=== PATIENT | female | born 1990 | race Caucasian/White ===

== ENCOUNTER 2022-06-27 16:48 | Outpatient (CLI) | payer OTHER | END 2022-06-27 16:49 | disposition home or self-care (01) | LOC: SCSRAD 16:48 | PROVIDERS: ATTEND Family Medicine | DX: M79.672 Pain in left foot (principal); M25.572 Pain in left ankle and joints of left foot ==

== ENCOUNTER 2022-09-04 08:25 | Outpatient (CLI) | payer OTHER | END 2022-09-04 08:26 | disposition home or self-care (01) | LOC: TBSIIMAG 08:25 | PROVIDERS: ATTEND Family Medicine | DX: M23.92 Unspecified internal derangement of left knee (principal) ==